=== PATIENT | male | born 1975 | race Caucasian/White ===

== ENCOUNTER 2017-09-09 00:38 | Inpatient (IN) | payer OTHER ==
[~2017-09-09] VITALS: Ht 177.8 cm; Wt 80.7 kg
[2017-09-09 00:47] VITALS: BP 136/73
[2017-09-09] MEDS ORDERED: HUMALOG100 UNIT/1 SUBQ (00:52)
[2017-09-09 02:19] LABS: ABSOLUTE NEUTROPHILS 11.7 thou/uL (1.4-8.2); BASOPHILS 1.2 % (0.0-2.0); HEMATOCRIT 37.8 % (42.0-52.0); HEMOGLOBIN 13.3 gm/dL (14.0-18.0); LYMPHOCYTES 11.1 % (24.0-44.0); MCHC 35.1 g/dL (28.0-37.0); MCV 91.2 fL (80.0-100.0); MONOCYTES 8.3 % (1.0-8.0); PLATELET COUNT 211 thou/uL (150-400); POLYS 78.4 % (36.0-66.0); RBC 4.14 mil/uL (4.50-6.00); RDW 12.8 % (10.5-14.5); URINE BILIRUBIN NEGATIVE (Negative); URINE BLOOD NEGATIVE (Negative); URINE CLARITY CLEAR; URINE COLOR YELLOW; URINE GLUCOSE-RANDOM* 3+ (Negative); URINE KETONES NEGATIVE (Negative); URINE LEUKOCYTES-REFLEX NEGATIVE (Negative); URINE NITRITE-REFLEX NEGATIVE (Negative); URINE PROTEIN (DIPSTICK) NEGATIVE (Negative); URINE UROBILINOGEN 0.2 E.U./dl (0.2-1.0); WBC 14.9 thou/uL (4.0-11.0)
[2017-09-09 02:25] LABS: CALCIUM 8.5 mg/dL (8.5-10.1); CREATININE 1.2 mg/dL (0.7-1.3)
[2017-09-09 02:31] LABS: TOTAL BILIRUBIN 0.6 mg/dL (<0.1-1.0); TOTAL PROTEIN 6.7 g/dL (6.4-8.2)
[2017-09-09 04:47] VITALS: BP 125/55
[2017-09-09] MEDS ORDERED: ASPIR 8181 MG PO (04:56)
[2017-09-09] MEDS ORDERED: NOVOLIN 70100 UNIT/1 SUBQ (04:58)
[2017-09-09 05:49] VITALS: BP 125/55
[2017-09-09 08:00] VITALS: BP 111/59
[2017-09-09 16:00] VITALS: BP 106/63
[2017-09-09 19:35] VITALS: BP 125/73
[2017-09-10 05:15] VITALS: BP 118/69
[2017-09-10 05:45] LABS: HEMATOCRIT 36.3 % (42.0-52.0); HEMOGLOBIN 12.7 gm/dL (14.0-18.0); MCH 31.4 pg (26.0-34.0); MCHC 34.9 g/dL (28.0-37.0); MCV 89.9 fL (80.0-100.0); RBC 4.04 mil/uL (4.50-6.00); RDW 12.8 % (10.5-14.5); WBC 11.4 thou/uL (4.0-11.0)
[2017-09-10 05:52] LABS: CALCIUM 8.1 mg/dL (8.5-10.1); CREATININE 0.8 mg/dL (0.7-1.3); POTASSIUM 3.8 mmol/L (3.5-5.1)
[2017-09-10 08:00] VITALS: BP 128/78
[2017-09-10] MEDS ORDERED: BACTRIM DS TAB1 EACH PO (11:48)
[2017-09-10 13:17] VITALS: BP 128/78
== END 2017-09-10 14:24 | disposition home or self-care (01) | DRG 728 ==
LOC: ER 00:38 → EROBS 04:39 → 4E 04:39
PROVIDERS: Emergency Medicine; Hospitalist
DX: N49.2 Inflammatory disorders of scrotum (principal); I10 Essential (primary) hypertension; E78.5 Hyperlipidemia, unspecified; E10.65 Type 1 diabetes mellitus with hyperglycemia; F12.90 Cannabis use, unspecified, uncomplicated; F17.210 Nicotine dependence, cigarettes, uncomplicated; I25.2 Old myocardial infarction; Z79.4 Long term (current) use of insulin; Z79.82 Long term (current) use of aspirin; Z79.899 Other long term (current) drug therapy; Z95.5 Presence of coronary angioplasty implant and graft
CPT/HCPCS: 10783